=== PATIENT | male | born 1960 | race Caucasian/White ===

== ENCOUNTER 2023-04-06 14:28 | Outpatient (OUT) | payer BC, SELFPAY ==
--- NOTE | 2023-04-06 14:41 | XR_ITS ---
[address] [address] Patient Name: MITCH CORRALES MRN: [id number] date: 1960 Sex: M Assigned Patient Location: RAD Current Patient Location: [facility] Accession/Order Number: [id number] Exam Date: 04/06/2023 14:42 Report Date: 04/06/2023 16:49 At the request of: BRICE AMAYA Procedure: XR knee RT 4V PROCEDURE: XR knee RT 4V COMPARISON: None. HISTORY: Primary Osteoarthritis Of Right Knee M17.11 FINDINGS: BONES:No acute fracture or dislocation. Moderate tricompartmental osteoarthropathy most significant in the medial compartment. Marginal osteophyte formation. SOFT TISSUES:Negative. No visible soft tissue swelling. EFFUSION:None visible. OTHER: Negative. IMPRESSION: Moderate osteoarthritis Electronically authenticated by: LUCRETIA GUZMAN Date: 04/06/2023 16:49
== END 2023-04-06 14:29 | disposition home or self-care (01) ==
LOC: RAD 14:33
PROVIDERS: PCP Family Medicine; Visit Provider Family Medicine
DX: M17.11 Unilateral primary osteoarthritis, right knee (principal)
CPT/HCPCS: 73564

== ENCOUNTER 2024-01-18 13:29 | Outpatient (OUT) | payer BC, SELFPAY | END 2024-01-18 13:30 | disposition home or self-care (01) | LOC: PST 13:29 | PROVIDERS: PCP Family Medicine; Visit Provider Surgery | DX: Z01.818 Encounter for other preprocedural examination (principal); Z86.010 Personal history of colon polyps; L91.8 Other hypertrophic disorders of the skin ==

== ENCOUNTER 2024-01-30 07:56 | Day surgery (SDC) | payer BC, SELFPAY ==
--- NOTE | 2024-01-30 | OP_ITS ---
OPERATION DATE: 01/30/2024 PREOPERATIVE DIAGNOSIS: Personal history of colon polyps, as well as enlarging, irritated skin tags of the left medial buttock. POSTOPERATIVE DIAGNOSIS: Personal history of colon polyps, as well as enlarging, irritated skin tags of the left medial buttock, with a 4 mm ascending colon polyp. PROCEDURE: Colonoscopy to cecum with cold snare polypectomy x1 and excisional biopsy of skin tags of the left buttock x2. SURGEON: Chalo Ashby M.D. ANESTHESIA: Monitored anesthesia care, as well as local with 0.5% Marcaine plain. ESTIMATED BLOOD LOSS: Less than 2 mL. INDICATIONS AND CONSENT: Patient is a 63-year-old male with a personal history of colon polyps. Last colonoscopy was in 2019 with removal of 1 cm tubular adenoma of the descending colon. He also has enlarging, irritated skin tags of the left medial buttock. Indications, risks, benefits, alternatives of proceeding with surveillance colonoscopy as well as excisional biopsy of the skin tags were explained extensively to the patient, including the risks of bleeding, colon perforation, scarring, pain, recurrence of the skin tags, need for further surgery or anesthetic complications. All of his questions were answered. Informed consent was obtained. PROCEDURE: Patient brought to the operating room, placed in the left lateral decubitus position. Monitored anesthesia care was provided. Rectal exam was performed which showed no masses or blood. The scope was inserted into the anal canal. Under direct visualization was advanced. It was advanced to the cecum where cecal markings were clearly identified. There was noted to be a good prep. Upon withdrawal of the scope, mucosal surfaces were carefully examined. Within the ascending colon, there was noted to be a 4 mm sessile polyp that was removed with cold snare with good hemostasis. There were no other mass lesions or polyps. No inflammatory changes or ulcerations. No significant diverticulosis. The scope was retroflexed in the anal canal. There was no significant hemorrhoidal disease. The scope was the removed. Follow up surveillance colonoscopy should be in five years. Patient was then left in the left lateral decubitus position. The skin tags were prepped and draped in the usual sterile fashion. They were anesthetized with 0.5% Marcaine plain. The smaller skin tag, the 5 mm one, was excised with needle tip electrocautery, since it had a narrow base. The larger one was excised in elliptical fashion, did appear to be a pedunculated lipoma within it. This incision was then closed with 4-0 Monocryl subcuticular sutures and skin glue was applied. Patient tolerated procedure well, was sent to recovery room in good condition. CC: Mayte Roberts M.D. SOHA
[2024-01-30 08:27] VITALS: BMI 43.2
[2024-01-30] MEDS: LACTATED RINGER'S SOLUTION 1,000 ML 50 ML IV (08:34)
[2024-01-30] MEDS: BUPIVACAINE HCL 0.5% PF 50 MG/10 ML VIAL 5 ML INJ (09:50)
[2024-01-30 10:04] VITALS: BP 113/70; PULSE 76; TEMP 35.9; O2SAT 97
[2024-01-30 10:34] VITALS: BP 140/81; PULSE 69; O2SAT 97
== END 2024-01-30 10:34 | disposition home or self-care (01) ==
PROVIDERS: PCP Family Medicine; Visit Provider Surgery
PROC: (CPT 00811; principal; 2024-01-30 08:45)
DX: Z86.010 Personal history of colon polyps (principal); L91.8 Other hypertrophic disorders of the skin; D12.2 Benign neoplasm of ascending colon; E11.9 Type 2 diabetes mellitus without complications; F41.9 Anxiety disorder, unspecified; N40.0 Benign prostatic hyperplasia without lower urinary tract symptoms; E78.5 Hyperlipidemia, unspecified; E66.01 Morbid (severe) obesity due to excess calories; G47.33 Obstructive sleep apnea (adult) (pediatric); Z68.41 Body mass index [BMI] 40.0-44.9, adult; N52.9 Male erectile dysfunction, unspecified; K57.90 Diverticulosis of intestine, part unspecified, without perforation or abscess without bleeding
CPT/HCPCS: 00811; 00902; 45385; 46230; 88304; 88305; J2704